=== PATIENT | female | born 1950 | race Caucasian/White ===

== ENCOUNTER 2021-12-27 16:48 | Inpatient (IN) ==
[2021-12-27 17:31] LABS: POC Calcium, Ionized 1.22 (1.16-1.32); POC Creatinine 0.7 (0.6-1.2); POC Potassium 3.6 (3.3-5.1)
[2021-12-27 18:07] LABS: Basophils # (Auto) 0.08 K/mcL (0.00-0.30); Basophils % (Auto) 1.3 % (0.0-2.0); Eosinophils # (Auto) 0.25 K/mcL (0.00-0.70); Hematocrit 38.6 % (34.1-44.9); Hemoglobin 13.9 g/dL (11.2-15.7); Lymphocytes # (Auto) 1.47 K/mcL (1.50-4.80); Lymphocytes % (Auto) 23.6 % (15.5-49.0); Mean Cell Volume 92.8 fL (80.0-100.0); Mean Platelet Volume 9.3 fL (7.4-10.4); Monocytes # (Auto) 0.68 K/mcL (0.10-0.90); Monocytes % (Auto) 10.9 % (1.0-12.0); Neutrophils % (Auto) 59.9 % (38.0-78.0); Platelet Count 252 K/mcL (140-440); RBC 4.16 M/mcL (3.59-5.38); Red Cell Distribution Width 11.3 % (11.5-14.5); WBC 6.2 K/mcL (4.5-11.0)
--- NOTE | 2021-12-27 18:07 | Emergency Department Note ---
HPI General Chief complaint: Recheck/Abnormal Lab/Rx Stated complaint: Low Sodium Time Seen by Provider: 12/27/21 17:08 Source: patient Mode of arrival: ambulatory Limitations: no limitations History of Present Illness HPI Narrative: Narrative: Patient presents to ED after being sent over by her PCP for concerns about low lab results. Patient states she had blood work done today and her PCP called her tell her that her sodium was low and that she needs to come to the ED right away. Patient states that the PCP did not tell her what the value was. She reports that her friends have been told that she has been off the last couple days. She also states that she has had some staggered ambulation over the last few days. She denies falling, head trauma, syncope, near syncope, dizziness, fever, chills, nausea, vomit, cardiac chest pain, heart palpitations, vision changes, shortness of breath, abdominal pain, diarrhea, dysuria, hematuria, urinary frequency. Patient states that she was started on a new medication that her PCP was concerned could cause low sodium which is why she had labs done today. She denies any other [id number] medication. Patient denies any other alleviating or aggravating factors. Related Data Home Medications Medication Instructions Recorded Confirmed cholecalciferol (vitamin D3) 50 2,000 unit PO QDAY 12/10/14 12/27/21 mcg (2,000 unit) capsule coenzyme Q10 100 mg capsule 200 mg PO QDAY 12/10/14 12/27/21 tiotropium bromide 2.5 2 inh inhalation .COMPLEX 12/10/14 12/27/21 mcg/actuation mist for inhalation vitamin E 268 mg (400 unit) capsule 400 unit PO QDAY 12/10/14 12/27/21 acetaminophen 325 mg tablet 650 mg PO Q4H PRN Pain 10/15/15 12/27/21 (Tylenol) fluticasone furoate 100 100 mcg inhalation QDAY 10/15/15 12/27/21 mcg/actuation blister powder for inhalation (Arnuity Ellipta) loratadine 10 mg tablet 10 mg PO BID 10/15/15 12/27/21 biotin 1 mg capsule 1 mg PO QDAY 09/22/17 12/27/21 calcium PO 09/22/17 06/01/18 lutein-zeaxanthin PO 09/22/17 06/01/18 magnesium 250 mg tablet 250 mg PO QHS 09/22/17 12/27/21 multivitamin 1 tab PO QDAY 09/22/17 12/27/21 vit A 300 mcg-C 200 mg-E 27 1 tab PO QDAY 09/22/17 12/27/21 mg-lutein 2 mg and minerals tablet (I-Caprice) olopatadine 0.1 % eye drops 1 drp ophthalmic (eye) PRN 01/23/18 12/27/21 celecoxib 200 mg capsule 200 mg PO QHS 05/09/18 12/27/21 Previous Rx's Medication Instructions Recorded pravastatin 40 mg tablet 40 mg PO QHS #90 tabs 01/23/18 raloxifene 60 mg tablet (Evista) 60 mg PO QDAY #90 tabs 01/23/18 Synthroid 88 mcg tablet 88 mcg PO QDAY #90 tabs 04/02/18 (levothyroxine) hydralazine 100 mg tablet 100 mg PO BID #180 tabs 04/02/18 bisoprolol fumarate 10 mg tablet 20 mg PO QDAY #180 tabs 05/09/18 losartan 50 mg tablet 50 mg PO QDAY #90 tabs 06/01/18 Allergies Allergy/AdvReac Type Severity Reaction Status Date / Time gluten Allergy Unknown Unknown Verified 12/27/21 16:52 guaifenesin Allergy Unknown Unknown Verified 12/27/21 16:52 latex Allergy Unknown Rash Verified 12/27/21 16:52 niacin Allergy Unknown Unknown Verified 12/27/21 16:52 Verapamil Allergy Unknown Hives Verified 12/27/21 16:52 Teriparatide [From Forteo] AdvReac Unknown Nausea Verified 12/27/21 16:52 Tree Nuts (Walnuts, Cashews, Allergy Unknown Unknown Uncoded 06/01/18 10:44 Chestnuts, Pecan, etc.) Review of Systems ROS ROS Narrative: Narrative: All systems ED: reviewed and negative except as stated. [facility] Narrative Patient History Narrative: Narrative: Medical/Surgical/Family History All Active Problems (Updated 12/27/21 @ 18:41 by Cliff Gibbs DO) Acute hyponatremia (Acute) Generalized muscle weakness (Acute) Ascending aortic aneurysm (Chronic) Aortic aneurysm without rupture (Acute) Metatarsalgia of both feet (Chronic) Aortic valve stenosis (Chronic) Disorder of function of stomach (Chronic) Collagenous colitis (Chronic) Multilevel degenerative disc disease (Chronic) Vitiligo (Chronic) Psoriasis (Chronic) Osteoporosis (Chronic) Myalgia and myositis (Chronic) Migraine (Chronic) Macular degeneration (Chronic) Irritable bowel syndrome (Chronic) Hypothyroidism (acquired) (Chronic) Hypertension, essential (Chronic) Hyperlipemia (Chronic) Fibromyalgia (Chronic) Fatigue (Chronic) Epilepsy (Chronic) Dupuytren contracture (Chronic) Asthma (Chronic) Allergic rhinitis (Chronic) Medical History Allergic rhinitis Recorded 02/17/07 And hx of recurrent sinus & ear infections. Seasonal, Perennial Ascending aortic aneurysm Asthma (02/05/14-Dr Latham), Cough variant asthma Contracture of palmar fascia Depressive disorder Dupuytren contracture Epilepsy Fatigue Fibromyalgia Hyperlipemia Hypertension, essential Hypothyroidism (acquired) Irritable bowel syndrome Macular degeneration Migraine Multilevel degenerative disc disease Myalgia and myositis Recorded 09/21/07 Also Fibromyalgia Osteoporosis Idiopathic Psoriasis Vitiligo Surgical History History of colonoscopy (03/29/12) History of hand surgery (02/05/2014-Dr Latham) History of myomectomy (02/05/2014-Dr Latham) History of wisdom tooth extraction (02/05/2014-Dr Latham) Family History Father Asthma Family history of malignant neoplasm of prostate Osteoporosis Allergic rhinitis Unknown Cardiovascular disease Congestive heart failure Essential hypertension Mother Family history of malignant neoplasm of gastrointestinal tract Pancreatic Osteoporosis Malignant neoplasm of pancreas Mother from pancreatic cancer Sister Morbid obesity Rheumatoid arthritis Social History Smoking Status: Never smoker Exam Narrative Narrative: Narrative: General Limitations: no limitations General appearance: Present alert Head Head: Present atraumatic and normocephalic Eye Eye: Present PERRL and EOMI ENT ENT: Present normal oropharynx and mucous membranes moist Neck Neck: Present full ROM; Absent meningismus Respiratory Respiratory: Present normal lung sounds bilaterally; Absent respiratory distress Cardiovascular Cardiovascular: Present regular rate and normal rhythm Adbominal Abdominal: Present soft and normal bowel sounds; Absent tenderness Extremities Extremities: Present normal inspection and other (Chronic right upper extremity essential tremor) Neurological Neurological: Present oriented X3 and normal gait Psychiatric Psychiatric: Present normal affect and normal mood Skin Skin: Present warm (WNL), intact and normal color Course Consultations Consultation #1: Page has been sent out to the housekeeper cleaning cooking for hospitalist consult Time: 18:45 Consultation #2: Case discussed with hospitalist who will come to ED to evaluate the patient for admission Time: 19:23 Vital Signs Vital signs: Vital Signs Temperature 98.1 F 12/27/21 16:49 Pulse Rate 62 12/27/21 16:49 Respiratory Rate 18 12/27/21 16:49 Blood Pressure 153/85 12/27/21 16:49 Pulse Oximetry (%) 98 12/27/21 16:49 Oxygen Delivery Method 12/27/21 16:49 Temperature 97.9 F 12/27/21 23:32 Pulse Rate 61 12/27/21 23:32 Respiratory Rate 14 12/27/21 23:32 Blood Pressure 102/65 12/27/21 23:32 Pulse Oximetry (%) 96 12/27/21 23:32 Oxygen Delivery Method 12/27/21 23:32 MDM MDM Narrative Medical decision making narrative: Narrative: Differential Diagnosis Differential Diagnosis: Electrolyte imbalance, dehydration, UTI Medical Records Medical records reviewed: Yes I reviewed the patient's medical records. Lab Data Lab results reviewed: Yes I reviewed the patient's lab results. Result diagrams: 12/27/21 17:23 12/27/21 17:23 Labs: Lab Results 12/27/21 12/27/21 12/27/21 Range/Units 17:23 17:23 17:28 WBC 6.2 (4.5-11.0) K/mcL RBC 4.16 (3.59-5.38) M/mcL Hgb 13.9 (11.2-15.7) g/dL Hct 38.6 (34.1-44.9) % POC Hct 42.0 (36-48) MCV 92.8 (80.0-100.0) fL MCH 33.4 (26.0-34.0) pg MCHC 36.0 (31.0-36.0) g/dL RDW 11.3 L (11.5-14.5) % Plt Count 252 (140-440) K/mcL MPV 9.3 (7.4-10.4) fL Immature Gran % (Auto) 0.3 (0.0-0.5) % Neut % (Auto) 59.9 (38.0-78.0) % Lymph % (Auto) 23.6 (15.5-49.0) % [place] % (Auto) 10.9 (1.0-12.0) % Eos % (Auto) 4.0 (0.0-7.0) % Baso % (Auto) 1.3 (0.0-2.0) % Lymph # (Auto) 1.47 L (1.50-4.80) K/mcL [place] # (Auto) 0.68 (0.10-0.90) K/mcL Eos # (Auto) 0.25 (0.00-0.70) K/mcL Baso # (Auto) 0.08 (0.00-0.30) K/mcL Immature Gran # 0.02 (0.00-0.05) K/mcl Absolute Neutrophils 3.76 (1.80-8.00) K/mcL POC Sodium 121 L (133-145) Sodium 120 L (133-145) mmol/L POC Potassium 3.6 (3.3-5.1) Potassium 3.6 (3.3-5.1) mmol/L POC Chloride 83 L (96-108) Chloride 81 L (96-108) mmol/L Carbon Dioxide 26 (22-30) mmol/L POC Total CO2 28.0 (22-30) Anion Gap 13.0 (8.0-16.0) POC BUN 16 (6-20) BUN 14 (8-23) mg/dL Creatinine 0.7 (0.6-1.1) mg/dL POC Creatinine 0.7 (0.6-1.2) GFR Calculation 86 Glucose 95 (70-105) mg/dL POC Glucose 97 (70-105) Calcium 9.6 (8.6-10.4) mg/dL POC WB Ioniz Calcium 1.22 (1.16-1.32) Total Bilirubin 0.3 (0.1-1.0) mg/dL AST 22 (<32) U/L ALT 16 (<40) U/L Alkaline Phosphatase 77 (39-117) U/L Total Protein 7.0 (5.9-8.4) gm/dL Albumin 4.5 (3.2-5.2) gm/dL Globulin 2.5 (2.2-3.7) gm/dL Albumin/Globulin Ratio 1.8 (1.0-2.3) EKG Data EKG #1: EKG attestation: Yes I reviewed and interpreted this EKG. EKG shows normal: sinus rhythm Rate: normal Rhythm: NSR Buras/QRS: LBBB Heart block present: None ST segment elevation in: None ST segment depression in: None QRS morphology: Present normal Interpretation: no acute changes Core Measures AMI Core Measures Followed: Yes Discharge Plan Patient/Caregiver Discharge Instructions Pt seen by VICE PRESIDENT [employer]ALITY [employer]OVEMENT/PA only: No Clinical Impression: Acute hyponatremia, Generalized muscle weakness Patient Disposition: Xfer As Inpt ([facility]) Condition: Good Discharge Date/Time: 12/27/21 21:58
[2021-12-27] MEDS ORDERED: 0.9 % SODIUM CHLORIDE 1,000 ML IV ONE (18:17)
[2021-12-27 18:29] LABS: ALT/SGPT 16 U/L (<40); AST/SGOT 22 U/L (<32); Albumin 4.5 gm/dL (3.2-5.2); Albumin/Globulin Ratio 1.8 (1.0-2.3); Alkaline Phosphatase 77 U/L (39-117); Bilirubin,Total 0.3 mg/dL (0.1-1.0); Blood Urea Nitrogen 14 mg/dL (8-23); Calcium 9.6 mg/dL (8.6-10.4); Carbon Dioxide 26 mmol/L (22-30); Chloride 81 mmol/L (96-108); Globulin 2.5 gm/dL (2.2-3.7); Glomerular Filtration Rate 86; Glucose 95 mg/dL (70-105)
--- NOTE | 2021-12-27 19:55 | Internal Med History&Physical ---
HPI History of Present Illness Patient information: Note initiated : 12/27/21 at 7:51 pm Service Date, if different from initiated Date: [] Patient: Carolyn Bustamante a 71 y/o F admitted on for Low Sodium. Chief Complaint: [Weakness] Chief complaint: Hyponatremia History of present illness: Ms. 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 The patient states that her cardiology team had been adjusting her antihypertensive regimen and she was placed on chlorthalidone last month. She had follow-up labs performed which revealed a sodium of 121 and she was advised to come to the ER for further management and evaluation. The patient states that she is been feeling weak for the last couple of days. She denies any nausea, vomiting, headaches or significant change in her mental status. On presentation, she was hemodynamically stable and afebrile. She was found to have a blood pressure of 157/79, heart rate of 56, respirate of 16 and an O2 sat of 100% on ambient air. The hospital service has been asked admit the patient for further management and evaluation of her drug-induced hyponatremia. Review of Systems All systems: reviewed and no additional remarkable complaints except as stated Constitutional Constitutional: Present as per HPI EENT Eyes: Present as per HPI; Absent blurry vision Cardiovascular Cardiovascular: Present as per HPI; Absent chest pain, dyspnea, dyspnea on exertion, leg edema or palpatations Respiratory Respiratory: Present as per HPI; Absent cough, dyspnea, dyspnea on exertion, wheezing or stridor Gastrointestinal Gastrointestinal: Present as per HPI; Absent abdominal pain, diarrhea, dysph agia, hematemesis, melena, nausea or vomiting Musculoskeletal Musculoskeletal: Present as per HPI; Absent joint swelling, limited range of motion, muscle cramps, muscle weakness or myalgias Integumentary Integumentary: Present as per HPI; Absent erythema, new lesions, rash or wounds Neurological Neurological: Present as per HPI; Absent abnormal gait, behavioral changes, focal weakness, headache(s), loss of vision, numbness, sensory deficit or syncop e Endocrine Endocrine: Absent change in body appearance, fatigue or heat intolerance Hematologic/Lymphatic Hematologic/Lymphatic: Present as per HPI PFSH PFSH All Active Problems (Updated 12/27/21 @ 18:41 by Cliff Gibbs DO) Acute hyponatremia (Acute) Generalized muscle weakness (Acute) Ascending aortic aneurysm (Chronic) Aortic aneurysm without rupture (Acute) Metatarsalgia of both feet (Chronic) Aortic valve stenosis (Chronic) Disorder of function of stomach (Chronic) Collagenous colitis (Chronic) Multilevel degenerative disc disease (Chronic) Vitiligo (Chronic) Psoriasis (Chronic) Osteoporosis (Chronic) Myalgia and myositis (Chronic) Migraine (Chronic) Macular degeneration (Chronic) Irritable bowel syndrome (Chronic) Hypothyroidism (acquired) (Chronic) Hypertension, essential (Chronic) Hyperlipemia (Chronic) Fibromyalgia (Chronic) Fatigue (Chronic) Epilepsy (Chronic) Dupuytren contracture (Chronic) Asthma (Chronic) Allergic rhinitis (Chronic) Medical History Allergic rhinitis Recorded 02/17/07 And hx of recurrent sinus & ear infections. Seasonal, Perennial Ascending aortic aneurysm Asthma (02/05/14-Dr Latham), Cough variant asthma Contracture of palmar fascia Depressive disorder Dupuytren contracture Epilepsy Fatigue Fibromyalgia Hyperlipemia Hypertension, essential Hypothyroidism (acquired) Irritable bowel syndrome Macular degeneration Migraine Multilevel degenerative disc disease Myalgia and myositis Recorded 09/21/07 Also Fibromyalgia Osteoporosis Idiopathic Psoriasis Vitiligo Surgical History History of colonoscopy (03/29/12) History of hand surgery (02/05/2014-Dr Latham) History of myomectomy (02/05/2014-Dr Latham) History of wisdom tooth extraction (02/05/2014-Dr Latham) Family History Father Asthma Family history of malignant neoplasm of prostate Osteoporosis Allergic rhinitis Unknown Cardiovascular disease Congestive heart failure Essential hypertension Mother Family history of malignant neoplasm of gastrointestinal tract Pancreatic Osteoporosis Malignant neoplasm of pancreas Mother from pancreatic cancer Sister Morbid obesity Rheumatoid arthritis Social History (Updated 06/01/18 @ 11:14 by Irwin Callaway MD) marital status: MEDS/ALLERGIES Home Medications and Allergies Home Medications Medication Instructions Recorded Confirmed Type cholecalciferol (vitamin D3) 50 2,000 unit PO QDAY 12/10/14 06/01/18 History mcg (2,000 unit) capsule coenzyme Q10 100 mg capsule 200 mg PO QDAY 12/10/14 06/01/18 History tiotropium bromide 2.5 2 inh inhalation .COMPLEX 12/10/14 06/01/18 History mcg/actuation mist for inhalation vitamin E 268 mg (400 unit) capsule 400 unit PO QDAY 12/10/14 06/01/18 History acetaminophen 325 mg tablet 650 mg PO Q4H PRN 10/15/15 06/01/18 History (Tylenol) fluticasone furoate 100 100 mcg inhalation QDAY 10/15/15 06/01/18 History mcg/actuation blister powder for inhalation (Arnuity Ellipta) loratadine 10 mg tablet 10 mg PO BID 10/15/15 06/01/18 History biotin 1 mg capsule 1 mg PO QDAY 09/22/17 06/01/18 History calcium PO 09/22/17 06/01/18 History lutein-zeaxanthin PO 09/22/17 06/01/18 History magnesium 250 mg tablet 250 mg PO QDAY 09/22/17 06/01/18 History multivitamin 1 tab PO QDAY 09/22/17 06/01/18 History vit A 300 mcg-C 200 mg-E 27 1 tab PO QDAY 09/22/17 06/01/18 History mg-lutein 2 mg and minerals tablet (I-Caprice) olopatadine 0.1 % eye drops 1 drp ophthalmic (eye) BID PRN 01/23/18 06/01/18 History allergy symptoms pravastatin 40 mg tablet 40 mg PO QHS #90 tabs 01/23/18 06/01/18 Rx raloxifene 60 mg tablet (Evista) 60 mg PO QDAY #90 tabs 01/23/18 06/01/18 Rx Synthroid 88 mcg tablet 88 mcg PO QDAY #90 tabs 04/02/18 06/01/18 Rx (levothyroxine) hydralazine 100 mg tablet 100 mg PO BID #180 tabs 04/02/18 06/01/18 Rx bisoprolol fumarate 10 mg tablet 20 mg PO QDAY #180 tabs 05/09/18 06/01/18 Rx celecoxib 200 mg capsule 200 mg PO QDAY 05/09/18 06/01/18 History losartan 50 mg tablet 50 mg PO QDAY #90 tabs 06/01/18 06/01/18 Rx Allergies Allergy/AdvReac Type Severity Reaction Status Date / Time gluten Allergy Unknown Unknown Verified 12/27/21 16:52 guaifenesin Allergy Unknown Unknown Verified 12/27/21 16:52 latex Allergy Unknown Rash Verified 12/27/21 16:52 niacin Allergy Unknown Unknown Verified 12/27/21 16:52 Verapamil Allergy Unknown Hives Verified 12/27/21 16:52 Teriparatide [From Forteo] AdvReac Unknown Nausea Verified 12/27/21 16:52 Tree Nuts (Walnuts, Cashews, Allergy Unknown Unknown Uncoded 06/01/18 10:44 Chestnuts, Pecan, etc.) EXAM Constitutional Vitals: Temp Pulse Resp BP Pulse Ox O2 Del Method 98.1 F 56 L 16 157/79 100 12/27/21 16:49 12/27/21 19:31 12/27/21 19:31 12/27/21 19:31 12/27/21 19:31 12/27/21 16:49 General appearance: average body habitus Head Head exam: Present atraumatic, normal inspection and normocephalic Eye Eye exam: Present EOMI, normal appearance and PERRL; Absent conjunctival injection ENT ENT exam: Present normal exam; Absent mucous membranes dry Neck Neck exam: Present full ROM; Absent lymphadenopathy Respiratory Respiratory exam: Present normal respiratory exam and CTAB; Absent decreased breath sounds, respiratory distress or wheezes Cardiovascular Cardiovascular exam: Present normal rate and rhythm and RRR; Absent JVD GI/Abdominal GI/Abdominal exam: Present normal bowel sounds and soft; Absent diminished bowel sounds, distended, guarding, mass, rebound or tenderness Neurological Exam Neurological exam: Present alert, CN II-XII intact and oriented X3 Psychiatric Psychiatric exam: Present normal affect and normal mood Skin Skin exam: Present intact and warm; Absent erythema, pallor, petechiae or rash DATA Data Completed and Pending Labs: Labs from last 24 hours 12/27/21 12/27/21 12/27/21 17:28 17:23 17:23 WBC 6.2 RBC 4.16 Hgb 13.9 Hct 38.6 POC Hct 42.0 MCV 92.8 MCH 33.4 MCHC 36.0 RDW 11.3 L Plt Count 252 MPV 9.3 Immature Gran % (Auto) 0.3 Neut % (Auto) 59.9 Lymph % (Auto) 23.6 [place] % (Auto) 10.9 Eos % (Auto) 4.0 Baso % (Auto) 1.3 Lymph # (Auto) 1.47 L [place] # (Auto) 0.68 Eos # (Auto) 0.25 Baso # (Auto) 0.08 Immature Gran # 0.02 Absolute Neutrophils 3.76 POC Sodium 121 L Sodium 120 L POC Potassium 3.6 Potassium 3.6 POC Chloride 83 L Chloride 81 L Carbon Dioxide 26 POC Total CO2 28.0 Anion Gap 13.0 POC BUN 16 BUN 14 Creatinine 0.7 POC Creatinine 0.7 GFR Calculation 86 Glucose 95 POC Glucose 97 Calcium 9.6 POC WB Ioniz Calcium 1.22 Total Bilirubin 0.3 AST 22 ALT 16 Alkaline Phosphatase 77 Total Protein 7.0 Albumin 4.5 Globulin 2.5 Albumin/Globulin Ratio 1.8 A/P Assessment and plan (1) Acute hyponatremia: Status: Acute (2) Generalized muscle weakness: Status: Acute (3) Ascending aortic aneurysm: Status: Chronic (4) Aortic aneurysm without rupture: Status: Acute Qualifiers: Aortic location: thoracic aorta Qualified Code(s): I71.2 - Thoracic aortic aneurysm, without rupture (5) Aortic valve stenosis: Status: Chronic Qualifiers: Cardiac valve disease etiology: etiology unspecified Qualified Code(s): I35.0 - Nonrheumatic aortic (valve) stenosis (6) Hypothyroidism (acquired): Status: Chronic Narrative A/P Narrative: The patient's chlorthalidone will now be discontinued. We will start her on NS 75 cc an hour and repeat her BMP tomorrow morning. Once her medication reconciliation is performed, we will resume her home medications. She may need a different antihypertensive added to her regimen such as clonidine, Imdur, or hydralazine. Time Spent With Patient Time: Total time spent is greater than 50% in coordination of care (as documented) at patient's floor/unit and/or counseling patient: Total time spent with greater than 50% in coordination of care (as documented) at patient's floor/unit and/or counseling patient:: Greater than 70 minutes
[2021-12-27] MEDS ORDERED: CELECOXIB 200 MG CAPSULE PO SCH (21:00)
[2021-12-27] MEDS ORDERED: 0.9 % SODIUM CHLORIDE 1,000 ML IV SCH (22:09)
[2021-12-27] MEDS ORDERED: SENNOSIDES 1 TABLET PO SCH (22:09)
[2021-12-27] MEDS ORDERED: ONDANSETRON 4 MG/2 ML VIAL IV PRN (22:09)
[2021-12-27] MEDS: 0.9 % SODIUM CHLORIDE 10 ML SYRINGE IV SCH (22:58)
[2021-12-27] MEDS: DOCUSATE SODIUM 100 MG CAPSULE PO SCH (22:58)
[2021-12-27] MEDS ORDERED: ACETAMINOPHEN 325 MG TABLET PO PRN (23:13)
[2021-12-27] MEDS ORDERED: ACETAMINOPHEN 325 MG TABLET PO ONE (23:25)
[2021-12-27] MEDS: METOPROLOL TARTRATE 50 MG TABLET PO SCH (23:42)
[2021-12-27] MEDS ORDERED: METOPROLOL TARTRATE 25 MG TABLET ONE (23:43)
[2021-12-28] MEDS: 0.9 % SODIUM CHLORIDE 10 ML SYRINGE IV SCH (05:04)
[2021-12-28 07:06] LABS: Blood Urea Nitrogen 10 mg/dL (8-23); Calcium 9.2 mg/dL (8.6-10.4); Carbon Dioxide 23 mmol/L (22-30); Chloride 94 mmol/L (96-108); Glomerular Filtration Rate 91; Glucose 81 mg/dL (70-105)
[2021-12-28] MEDS: DOCUSATE SODIUM 100 MG CAPSULE PO SCH (08:09)
[2021-12-28] MEDS: METOPROLOL TARTRATE 50 MG TABLET PO SCH (08:09)
[2021-12-28] MEDS ORDERED: hydrALAZINE 25 MG TABLET PO SCH (09:00)
[2021-12-28] MEDS ORDERED: ENOXAPARIN 40 MG/0.4 ML SYRINGE SQ SCH (09:00)
--- NOTE | 2021-12-28 09:23 | Discharge Summary ---
Discharge Provider Provider IMPORTANT FOLLOW-UP INFORMATION FOR PCP: 1. F/u for ongoing adjustment of anti-hypertensive regimen Patient information: Note initiated : 12/28/21 at 9:13 am Service Date, if different from initiated Date: [] Patient: Carolyn Bustamante 71 y/o F admitted on 12/27/21 for Low Sodium. Chief Complaint: [] Date of admission: 12/27/21 21:58 Discharge date: 12/28/21 Primary care physician: Irwin Callaway Consults: 12/27/21 Consult to Physician [CONS] Stat Comment: Symptomatic hyponatremia Consulting Provider: Angelo Morris Reason For Exam: Physician to Consult Attending physician on discharge: Angelo Morris COURSE Hospital Course Hospital course: Chief complaint: Hyponatremia History of present illness: Ms. 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 The patient states that her cardiology team had been adjusting her antihypertensive regimen and she was placed on chlorthalidone last month. She had follow-up labs performed which revealed a sodium of 121 and she was advised to come to the ER for further management and evaluation. The patient states that she is been feeling weak for the last couple of days. She denies any nausea, vomiting, headaches or significant change in her mental status. On presentation, she was hemodynamically stable and afebrile. She was found to have a blood pressure of 157/79, heart rate of 56, respirate of 16 and an O2 sat of 100% on ambient air. The hospital service has been asked admit the patient for further management and evaluation of her drug-induced hyponatremia. Hospital course: The patient was found to have hypovolemic hyponatremia Was thought to be diuretic induced as she was recently started on chlorthalidone. This medication was held and she was gently hydrated with IV fluids with LR at 75 cc an hour. This morning her sodium went from 121 and is now 130. She remains asymptomatic. She is eager to return home. She will be discharged home and follow-up with her primary care physician and with cardiology. Discharge diagnosis: Hyponatremia Reason for admission: Weakness, abnormal labs Time Spent with Patient Time attestation: Total time spent providing and/or coordinating discharge services: Time spent: Greater than 30 minutes EXAM Constitutional Vitals: Temp Pulse Resp BP Pulse Ox O2 Del Method 98.1 F 55 L 20 145/81 96 12/28/21 08:00 12/28/21 08:00 12/28/21 08:00 12/28/21 08:00 12/28/21 08:00 12/28/21 08:00 General appearance: average body habitus Head Head exam: Present atraumatic, normal inspection and normocephalic Eye Eye exam: Present EOMI, normal appearance and PERRL; Absent conjunctival injection ENT ENT exam: Present normal exam; Absent mucous membranes dry Neck Neck exam: Present full ROM; Absent lymphadenopathy Respiratory Respiratory exam: Present normal respiratory exam and CTAB; Absent decreased breath sounds, respiratory distress or wheezes Cardiovascular Cardiovascular exam: Present normal rate and rhythm and RRR; Absent JVD GI/Abdominal GI/Abdominal exam: Present normal bowel sounds and soft; Absent diminished bowel sounds, distended, guarding, mass, rebound or tenderness Neurological Exam Neurological exam: Present alert, CN II-XII intact and oriented X3 Psychiatric Psychiatric exam: Present normal affect and normal mood Skin Skin exam: Present intact and warm; Absent erythema, pallor, petechiae or rash Discharge Data Data Completed and Pending Labs on day of discharge: Labs from last 24 hours 12/28/21 12/27/21 12/27/21 05:25 17:28 17:23 WBC 6.2 RBC 4.16 Hgb 13.9 Hct 38.6 POC Hct 42.0 MCV 92.8 MCH 33.4 MCHC 36.0 RDW 11.3 L Plt Count 252 MPV 9.3 Immature Gran % (Auto) 0.3 Neut % (Auto) 59.9 Lymph % (Auto) 23.6 Dougherty % (Auto) 10.9 Eos % (Auto) 4.0 Baso % (Auto) 1.3 Lymph # (Auto) 1.47 L Dougherty # (Auto) 0.68 Eos # (Auto) 0.25 Baso # (Auto) 0.08 Immature Gran # 0.02 Absolute Neutrophils 3.76 POC Sodium 121 L Sodium 130 L POC Potassium 3.6 Potassium 3.7 POC Chloride 83 L Chloride 94 L Carbon Dioxide 23 POC Total CO2 28.0 Anion Gap 13.0 POC BUN 16 BUN 10 Creatinine 0.6 POC Creatinine 0.7 GFR Calculation 91 Glucose 81 POC Glucose 97 Calcium 9.2 POC WB Ioniz Calcium 1.22 Total Bilirubin AST ALT Alkaline Phosphatase Total Protein Albumin Globulin Albumin/Globulin Ratio 12/27/21 17:23 WBC RBC Hgb Hct POC Hct MCV MCH MCHC RDW Plt Count MPV Immature Gran % (Auto) Neut % (Auto) Lymph % (Auto) Dougherty % (Auto) Eos % (Auto) Baso % (Auto) Lymph # (Auto) Dougherty # (Auto) Eos # (Auto) Baso # (Auto) Immature Gran # Absolute Neutrophils POC Sodium Sodium 120 L POC Potassium Potassium 3.6 POC Chloride Chloride 81 L Carbon Dioxide 26 POC Total CO2 Anion Gap 13.0 POC BUN BUN 14 Creatinine 0.7 POC Creatinine GFR Calculation 86 Glucose 95 POC Glucose Calcium 9.6 POC WB Ioniz Calcium Total Bilirubin 0.3 AST 22 ALT 16 Alkaline Phosphatase 77 Total Protein 7.0 Albumin 4.5 Globulin 2.5 Albumin/Globulin Ratio 1.8 Discharge Plan Patient/Caregiver Discharge Instructions Activity: increase activity as tolerated Instructions: Hyponatremia (DC) Prescriptions: Continued raloxifene [Evista] 60 mg tablet 60 mg PO QDAY Qty: 90 3RF pravastatin 40 mg tablet 40 mg PO QHS Qty: 90 3RF levothyroxine [Synthroid] 88 mcg tablet 88 mcg PO QDAY Qty: 90 0RF Label Comments: for 90 days coenzyme Q10 100 mg capsule 200 mg PO QDAY Label Comments: for 30 days vitamin E 400 unit capsule 400 unit PO QDAY cholecalciferol (vitamin D3) 2,000 unit capsule 2,000 unit PO QDAY loratadine 10 mg tablet 10 mg PO BID acetaminophen [Tylenol] 325 mg tablet 650 mg PO Q4H PRN (Reason: Pain) multivitamin tablet 1 tab PO QDAY lutein-zeaxanthin PO calcium PO magnesium 250 mg tablet 250 mg PO QHS vit A,C and [id number] [I-Caprice] 1,000 unit-200 mg-60 unit-2 mg tablet 1 tab PO QDAY biotin 1 mg capsule 1 mg PO QDAY olopatadine 0.1 % drops 1 drp OPHTHALMIC PRN celecoxib 200 mg capsule 200 mg PO QHS losartan 50 mg tablet 50 mg PO QDAY Qty: 90 3RF Follow Up Plan Follow up with: Irwin Callaway MD [Primary Care Provider] - Patient Disposition: Home, Self-Care Prognosis: Good Rehab Potential: Good I certify that the patient requires SNF services: No Overall status at discharge: patient is progressing back to baseline Discharge Orders: Discharge Order (Routine); Ordered 12/28/21 Ordered By: Angelo Morris
== END 2021-12-28 10:45 | disposition home or self-care (01) | DRG 641 ==
LOC: ED 16:48 → MEDSUR 21:58
PROVIDERS: ADMIT Student in an Organized Health Care Education/Training Program; ATTEND Student in an Organized Health Care Education/Training Program